=== PATIENT | male | born 1970 | race Caucasian/White ===

== ENCOUNTER 2023-03-04 13:21 | Inpatient (IN) | payer OTHER ==
[~2023-03-04] VITALS: Ht 165.1 cm; Wt 113.4 kg
[2023-03-04 15:21] VITALS: BP 139/73; TEMP 98.2; O2SAT 94
[2023-03-04] MEDS ORDERED: MAG HYDROX/AL HYDROX/SIMETH 30 ML LIQUID UDC PO PRN (17:30)
[2023-03-04] MEDS ORDERED: LORAZEPAM 1 MG TABLET PO PRN (17:30)
[2023-03-04] MEDS ORDERED: ZOLPIDEM 5 MG TABLET PO PRN (17:30)
[2023-03-04] MEDS ORDERED: IBUPROFEN 600 MG TABLET PO PRN (17:30)
[2023-03-04] MEDS ORDERED: MAGNESIUM HYDROXIDE 30 ML LIQUID UDC PO PRN (17:30)
[2023-03-04] MEDS ORDERED: ACETAMINOPHEN ES 500 MG TABLET PO PRN (17:30)
[2023-03-04] MEDS ORDERED: RISPERIDONE 4 MG PO SCH (18:00)
[2023-03-04 20:02] VITALS: BP 114/67; TEMP 98; O2SAT 94
[2023-03-04] MEDS: BLOOD SUGAR DIAGNOSTIC 1 EACH STRIP VI SCH (20:34)
[2023-03-05] MEDS: BLOOD SUGAR DIAGNOSTIC 1 EACH STRIP VI SCH (06:33)
[2023-03-05 08:00] VITALS: BP 147/75; TEMP 96.7; O2SAT 72
[2023-03-05] MEDS ORDERED: LISINOPRIL 20MG TABLET PO SCH (09:00)
[2023-03-05] MEDS ORDERED: GLIMEPIRIDE 2MG TABLET PO SCH (09:00)
[2023-03-09] MEDS ORDERED: OLANZAPINE 5 MG TABLET PO SCH (21:00)
[2023-03-12] MEDS ORDERED: LORAZEPAM 1 MG TABLET PO PRN (15:00)
[2023-03-12] MEDS ORDERED: ZOLPIDEM 5 MG TABLET PO PRN (15:00)
[2023-03-19] MEDS ORDERED: LORAZEPAM 1 MG TABLET PO PRN (15:00)
[2023-03-19] MEDS ORDERED: ZOLPIDEM 5 MG TABLET PO PRN (15:00)
[2023-03-26] MEDS ORDERED: ZOLPIDEM 5 MG TABLET PO PRN (15:00)
[2023-03-26] MEDS ORDERED: LORAZEPAM 1 MG TABLET PO PRN (15:00)
== END 2023-03-05 08:45 | disposition left against medical advice (07) | DRG 951 ==
LOC: MEDSURG3 13:21 → UNDOADMIN 13:21 → SRC 13:21
PROVIDERS: ADMIT Psychiatry & Neurology Psychiatry; ATTEND Psychiatry & Neurology Psychiatry
DX: Z00.6 Encounter for examination for normal comparison and control in clinical research program (principal); F20.9 Schizophrenia, unspecified
CPT/HCPCS: G0378